=== PATIENT | female | born 1995 | race Caucasian/White ===

== ENCOUNTER 2017-06-18 21:51 | Inpatient (IN) | payer OTHER ==
[~2017-06-18] VITALS: Ht 157.5 cm; Wt 101.4 kg
[~2017-06-18 21:51] MED LIST: (None)20 M1 PO; BIRTH CONTROL PILL; CEPH500 PO; CIPR500 PO; CYCL10 PO; Crutch1 EACH MISC; HYDACE5 PO; IBUP600 PO; MEDR150I IM; NEXPLANON68 MG; Naprosyn500 MG PO; Nix Lice Treatm59 ML TOP; Norco 5-325 Ta1 EACH PO; ONDA4ODT MM; ONDA8ODT MM; OXYACE5T PO; PERM5TC TOP; Permethrin60 GM TOP; Verotin-Gr Cap1 EACH PO
[2017-06-19] MEDS ORDERED: Verotin-Gr Cap1 EACH PO (01:33)
[2017-06-19 01:45] LABS: BASOPHILS ABSOLUTE AUTO 0.01 K/mm3 (0.00-0.23); BASOPHILS PERCENT AUTO 0 % (0-2); EOSINOPHILS ABSOLUTE AUTO 0.03 K/mm3 (0.00-0.68); EOSINOPHILS PERCENT AUTO 0 % (0-6); Hematocrit 35.5 % (33.0-51.0); Hemoglobin 11.5 g/dL (11.5-16.0); IMMATURE GRAN ABSOLUTE AUTO 0.04 K/mm3 (0.00-0.10); IMMATURE GRAN PERCENT AUTO 0 % (0-1); LYMPHOCYTES PERCENT AUTO 12 % (21-46); MONOCYTES ABSOLUTE AUTO 0.48 K/mm3 (0.16-1.47); MONOCYTES PERCENT AUTO 4 % (4-13); Mean Corpuscular HGB 24.5 pg (26.0-34.0); Mean Corpuscular HGB Conc 32.4 g/dL (31.5-36.5); Mean Corpuscular Volume 76 fL (80-100); Mean Platelet Volume 9.8 fL (9.1-12.4); NEUTROPHILS ABSOLUTE AUTO 9.49 K/mm3 (1.96-9.15); NEUTROPHILS PERCENT AUTO 84 % (41-73); Platelet Count 253 K/mm3 (150-400); RDW Coefficient Variation 14.7 % (11.7-14.2); RDW Standard Deviation 40.9 fL (35.1-46.3); White Blood Cell Count 11.35 K/mm3 (4.00-11.30)
[2017-06-20 06:19] LABS: Hematocrit 30.7 % (33.0-51.0); Hemoglobin 9.8 g/dL (11.5-16.0); Mean Corpuscular HGB 24.4 pg (26.0-34.0); Mean Corpuscular HGB Conc 31.9 g/dL (31.5-36.5); Mean Corpuscular Volume 77 fL (80-100); Mean Platelet Volume 9.5 fL (9.1-12.4); Platelet Count 207 K/mm3 (150-400); RDW Coefficient Variation 14.9 % (11.7-14.2); RDW Standard Deviation 42.2 fL (35.1-46.3); Red Blood Cell Count 4.01 M/mm3 (3.80-5.20); White Blood Cell Count 12.05 K/mm3 (4.00-11.30)
[2017-06-20] MEDS ORDERED: IBUP800 PO (09:39)
== END 2017-06-20 18:20 | disposition home or self-care (01) | DRG 775 ==
LOC: BC 21:51 → OBS 06-19 01:18 → BC 06-19 01:19
PROVIDERS: Registered Nurse Community Health
PROC: 10E0XZZ Delivery of Products of Conception, External Approach (ICD-10-PCS; principal; 2017-06-19)
PROC: 0HQ9XZZ Repair Perineum Skin, External Approach (ICD-10-PCS; 2017-06-19)
PROC: 10907ZC Drainage of Amniotic Fluid, Therapeutic from Products of Conception, Via Natural or Artificial Opening (ICD-10-PCS; 2017-06-19)
DX: O99.214 Obesity complicating childbirth (principal); Z68.41 Body mass index [BMI] 40.0-44.9, adult; E66.9 Obesity, unspecified; O70.0 First degree perineal laceration during delivery; Z37.0 Single live birth; Z3A.40 40 weeks gestation of pregnancy; Z88.0 Allergy status to penicillin
CPT/HCPCS: 36415; 51702; 59025; 81003; 85025; 85027; 99214; J1885; J2590; J3010; J7120

== ENCOUNTER → 2019-03-31 | Outpatient (CLI) | payer OTHER ==
[~2019-03-31] MED LIST changes: +IBUP800 PO
[2019-04-02 19:05] LABS: CHLAMYDIA TRACHOMATIS, NAA Negative (Negative); NEISSERIA GONORRHOEAE, NAA Negative (Negative)
== END ==
LOC: LAB SHORT 15:19 → LAB UCHC 15:19
PROVIDERS: Registered Nurse Community Health
DX: O26.91 Pregnancy related conditions, unspecified, first trimester (principal)
CPT/HCPCS: 87491; 87591

== ENCOUNTER 2019-09-27 04:14 | Observation (INO) | payer OTHER ==
[~2019-09-27 04:14] MED LIST changes: +SERT100 PO
[2019-09-27 04:42] LABS: Source, Urine Clean Catch
[2019-09-27 04:47] LABS: Appearance, Urine Cloudy (Clear); Bilirubin, Urine Neg (Neg); Blood, Urine 4+ (Neg); Color, Urine Yellow (P-Yellow); Glucose Qualitative, Urine Neg (Neg); Ketones, Urine 4+ (Neg); Leukocyte Esterase, Urine 3+ (Neg); Nitrite, Urine Neg (Neg); Protein, Urine 2+ (Neg); Urobilinogen, Urine NORM (Normal)
[2019-09-27 04:52] LABS: Trichomonas Few /hpf; White Blood Cells, Urine TNTC /hpf (0-5)
[2019-09-27 04:53] LABS: Bacteria Many /hpf; Mucus Light (0-Heavy); Red Blood Cells, Urine 25-50 /hpf (0-2); Squamous Epithelial Cells Mod /hpf (Few)
[2019-09-27 06:54] LABS: BASOPHILS ABSOLUTE AUTO 0.03 K/mm3 (0.00-0.23); BASOPHILS PERCENT AUTO 0 % (0-2); EOSINOPHILS ABSOLUTE AUTO 0.01 K/mm3 (0.00-0.68); EOSINOPHILS PERCENT AUTO 0 % (0-6); Hematocrit 32.4 % (33.0-51.0); Hemoglobin 10.4 g/dL (11.5-16.0); IMMATURE GRAN ABSOLUTE AUTO 0.08 K/mm3 (0.00-0.10); IMMATURE GRAN PERCENT AUTO 1 % (0-1); LYMPHOCYTES ABSOLUTE AUTO 0.89 K/mm3 (0.84-5.20); LYMPHOCYTES PERCENT AUTO 8 % (21-46); MONOCYTES ABSOLUTE AUTO 0.52 K/mm3 (0.16-1.47); MONOCYTES PERCENT AUTO 5 % (4-13); Mean Corpuscular HGB 27.1 pg (26.0-34.0); Mean Corpuscular HGB Conc 32.1 g/dL (31.5-36.5); Mean Corpuscular Volume 84 fL (80-100); Mean Platelet Volume 10.1 fL (9.1-12.4); NEUTROPHILS ABSOLUTE AUTO 10.15 K/mm3 (1.96-9.15); NEUTROPHILS PERCENT AUTO 87 % (41-73); Platelet Count 176 K/mm3 (150-400); RDW Coefficient Variation 13.8 % (11.7-14.2); RDW Standard Deviation 42.4 fL (35.1-46.3); Red Blood Cell Count 3.84 M/mm3 (3.80-5.20); White Blood Cell Count 11.68 K/mm3 (4.00-11.30)
[2019-09-27 07:20] LABS: Alanine Aminotransfer (ALT/SGP 12 U/L (12-78); Albumin, Blood 2.2 g/dL (3.4-5.0); Albumin/Globulin Ratio 0.6 (0.8-1.8); Alk Phos 94 U/L (50-136); Anion Gap 8 mmol/L (6-16); Aspartate Aminotrans (AST/SGOT 12 U/L (12-37); Bilirubin, Total 0.2 mg/dL (0.1-1.0); Blood Urea Nitrogen 6 mg/dL (8-24); Bun/Creatinine Ratio 8.3 (12.0-20.0); CO2, Blood 21 mmol/L (21-32); Chloride, Blood 110 mmol/L (98-108); Creatinine, Blood 0.73 mg/dL (0.40-1.00); Globulin, Blood 3.7 g/dL (2.2-4.0); Glomerular Filtration Rate >60 (60-); Glucose, Blood 105 mg/dL (70-99); Sodium, Blood 139 mmol/L (136-145); Total Protein, Blood 5.9 g/dL (6.4-8.2)
--- NOTE | 2019-09-27 10:09 | NUR ---
0715 ASSUMED CARE ASSUMED CARE OF PATIENT PATIENT REPORTS PAIN IS NOW INCREASING, MEDICATED WITH FENTANYL AND PAIN REDUCED TO 0. K. CHONGT IN TO SEE PATIENT, WILL WAIT FOR RENAL U/S RESULT AND CONTINUE TO HYDRATE VIA IVF
== END 2019-09-27 12:15 | disposition home or self-care (01) ==
LOC: BC 04:14 → OBS 04:14 → BC 09:21
PROVIDERS: Advanced Practice Midwife; ADMIT Registered Nurse Community Health
DX: O60.00 Preterm labor without delivery, unspecified trimester (principal); Z3A.00 Weeks of gestation of pregnancy not specified; Z88.0 Allergy status to penicillin
CPT/HCPCS: 36415; 59025; 76770; 80053; 81001; 81003; 85025; 87086; 96361; 96365; 96366; 96375; 96376; G0378; J0696; J2405; J3010; J7030

== ENCOUNTER → 2019-10-06 | Outpatient (CLI) | payer OTHER | LOC: LAB SHORT 19:05 → LAB 19:05 | DX: Z34.83 Encounter for supervision of other normal pregnancy, third trimester (principal) | CPT/HCPCS: 87081; 87653 ==

== ENCOUNTER 2019-11-02 04:43 | Inpatient (IN) | payer OTHER ==
[~2019-11-02] VITALS: Ht 157.5 cm; Wt 108.2 kg
[2019-11-02 05:55] LABS: BASOPHILS ABSOLUTE AUTO 0.02 K/mm3 (0.00-0.23); BASOPHILS PERCENT AUTO 0 % (0-2); EOSINOPHILS ABSOLUTE AUTO 0.07 K/mm3 (0.00-0.68); EOSINOPHILS PERCENT AUTO 1 % (0-6); Hematocrit 33.1 % (33.0-51.0); Hemoglobin 10.8 g/dL (11.5-16.0); IMMATURE GRAN ABSOLUTE AUTO 0.09 K/mm3 (0.00-0.10); IMMATURE GRAN PERCENT AUTO 1 % (0-1); LYMPHOCYTES ABSOLUTE AUTO 1.73 K/mm3 (0.84-5.20); LYMPHOCYTES PERCENT AUTO 18 % (21-46); MONOCYTES ABSOLUTE AUTO 0.57 K/mm3 (0.16-1.47); MONOCYTES PERCENT AUTO 6 % (4-13); Mean Corpuscular HGB 25.7 pg (26.0-34.0); Mean Corpuscular HGB Conc 32.6 g/dL (31.5-36.5); Mean Corpuscular Volume 79 fL (80-100); Mean Platelet Volume 9.9 fL (9.1-12.4); NEUTROPHILS ABSOLUTE AUTO 7.06 K/mm3 (1.96-9.15); NEUTROPHILS PERCENT AUTO 74 % (41-73); Platelet Count 202 K/mm3 (150-400); RDW Coefficient Variation 14.4 % (11.7-14.2); RDW Standard Deviation 40.4 fL (35.1-46.3); Red Blood Cell Count 4.21 M/mm3 (3.80-5.20); White Blood Cell Count 9.54 K/mm3 (4.00-11.30)
[2019-11-03 05:30] LABS: BASOPHILS ABSOLUTE AUTO 0.02 K/mm3 (0.00-0.23); BASOPHILS PERCENT AUTO 0 % (0-2); EOSINOPHILS ABSOLUTE AUTO 0.06 K/mm3 (0.00-0.68); EOSINOPHILS PERCENT AUTO 1 % (0-6); Hematocrit 28.6 % (33.0-51.0); Hemoglobin 9.3 g/dL (11.5-16.0); IMMATURE GRAN ABSOLUTE AUTO 0.09 K/mm3 (0.00-0.10); IMMATURE GRAN PERCENT AUTO 1 % (0-1); LYMPHOCYTES ABSOLUTE AUTO 1.59 K/mm3 (0.84-5.20); LYMPHOCYTES PERCENT AUTO 13 % (21-46); MONOCYTES ABSOLUTE AUTO 0.64 K/mm3 (0.16-1.47); MONOCYTES PERCENT AUTO 5 % (4-13); Mean Corpuscular HGB 25.8 pg (26.0-34.0); Mean Corpuscular HGB Conc 32.5 g/dL (31.5-36.5); Mean Corpuscular Volume 79 fL (80-100); Mean Platelet Volume 9.9 fL (9.1-12.4); NEUTROPHILS ABSOLUTE AUTO 9.75 K/mm3 (1.96-9.15); NEUTROPHILS PERCENT AUTO 80 % (41-73); Platelet Count 174 K/mm3 (150-400); RDW Coefficient Variation 14.3 % (11.7-14.2); RDW Standard Deviation 41.4 fL (35.1-46.3); White Blood Cell Count 12.15 K/mm3 (4.00-11.30)
[2019-11-03] MEDS ORDERED: PRENATAL MULTI1 EAC3 PO (11:38)
[2019-11-03] MEDS ORDERED: IBUP800 PO (11:39)
--- NOTE | 2019-11-03 12:52 | NUR ---
SCRIPT FOR IBUPROFEN 800 MG 1 PO Q 8 HOURS PRN PAIN #30 WITH 1 REFILL. CALLED TO [facility]
--- NOTE | 2019-11-03 16:18 | NUR ---
1600: CHARTING OF SN REVIEWED. PT D/C HOME WITH BABY
== END 2019-11-03 16:00 | disposition home or self-care (01) | DRG 807 ==
LOC: OBS 04:43 → BC 04:45 → OBS 04:57 → BC 04:58
PROVIDERS: ADMIT Registered Nurse Community Health
PROC: 10E0XZZ Delivery of Products of Conception, External Approach (ICD-10-PCS; principal; 2019-11-02)
PROC: 10907ZC Drainage of Amniotic Fluid, Therapeutic from Products of Conception, Via Natural or Artificial Opening (ICD-10-PCS; 2019-11-02)
PROC: 3E033VJ Introduction of Other Hormone into Peripheral Vein, Percutaneous Approach (ICD-10-PCS; 2019-11-02)
PROC: 6A550ZT Pheresis of Cord Blood Stem Cells, Single (ICD-10-PCS; 2019-11-02)
DX: O99.344 Other mental disorders complicating childbirth (principal); Z37.0 Single live birth; F41.9 Anxiety disorder, unspecified; O69.81X0 Labor and delivery complicated by cord around neck, without compression, not applicable or unspecified; Z3A.40 40 weeks gestation of pregnancy
CPT/HCPCS: 36415; 51702; 85025; 86850; 86900; 86901; J2001; J2210; J2590; J3010; J7120

== ENCOUNTER 2020-02-10 06:28 | Day surgery (SDC) | payer OTHER ==
[~2020-02-10] VITALS: Ht 157.5 cm; Wt 106.3 kg
[~2020-02-10 06:28] MED LIST changes: +PRENATAL MULTI1 EAC3 PO
[2020-02-10] MEDS ORDERED: SERT100 (07:21)
--- NOTE | 2020-02-10 07:37 | NUR ---
02/10/20 0737 Afia Parker COVID DONE IN PREOP. AWAITING RESULTS. ANESTHESIA AND DR AWARE. CALL LIGHT WITHIN REACH
--- NOTE | 2020-02-10 10:01 | NUR ---
02/10/20 1001 DOROTA KUMARI RECEIVED REPORT FROM ZENA ELLSWORTH. PATIENT HAS BEEN MEDICATED WITH IV PAIN MEDICATION - FENTANYL - TOTAL OF 50 MCG PRIOR TO TRANSFER OF CARE. PATIENT REPORTS PAIN AT 3/10 AND IS TOLERABLE. IS VISIBLY RELAXED AND ABLE TO NOD OFF. REMAINS CALM MOVES ABOUT EASILY. PATIENT DENIES WANTING ANY THING OTHER THAN WATER AT THIS TIME. VSS. CALLED AND IS ON WAY. WILL CONTINUE TO MONITOR
== END 2020-02-10 10:20 | disposition home or self-care (01) ==
LOC: ORSCSDS 06:28
PROVIDERS: Obstetrics & Gynecology
PROC: 0UT74ZZ Resection of Bilateral Fallopian Tubes, Percutaneous Endoscopic Approach (ICD-10-PCS; principal; 2020-02-10 07:30)
DX: Z30.2 Encounter for sterilization (principal); J45.909 Unspecified asthma, uncomplicated; E66.01 Morbid (severe) obesity due to excess calories; Z68.41 Body mass index [BMI] 40.0-44.9, adult; Z79.899 Other long term (current) drug therapy
CPT/HCPCS: 88302; J0171; J1100; J1580; J1885; J2250; J2405; J2704; J2710; J3010; J7120; U0002

== ENCOUNTER 2022-07-15 15:43 | Emergency (ER) | payer OTHER ==
[~2022-07-15] VITALS: Ht 157.5 cm; Wt 90.7 kg
[~2022-07-15 15:43] MED LIST changes: +SERT100
== END 2022-07-15 16:59 | disposition home or self-care (01) ==
LOC: ER 15:43
DX: S61.012A Laceration without foreign body of left thumb without damage to nail, initial encounter (principal); R55 Syncope and collapse; W19.XXXA Unspecified fall, initial encounter; Z87.891 Personal history of nicotine dependence
CPT/HCPCS: 93005; 93010

== ENCOUNTER 2022-07-17 12:52 | Emergency (ER) | payer OTHER ==
[~2022-07-17] VITALS: Ht 157.5 cm; Wt 90.7 kg
== END 2022-07-17 15:40 | disposition home or self-care (01) ==
LOC: ER 12:52
DX: S06.0XAA Concussion with loss of consciousness status unknown, initial encounter (principal); J45.909 Unspecified asthma, uncomplicated; G47.30 Sleep apnea, unspecified; Z88.0 Allergy status to penicillin; Z91.018 Allergy to other foods; Z79.899 Other long term (current) drug therapy; Z87.891 Personal history of nicotine dependence; W18.30XA Fall on same level, unspecified, initial encounter; Y99.0 Civilian activity done for income or pay
CPT/HCPCS: 70450; 99284-25

== ENCOUNTER 2022-07-20 17:10 | Emergency (ER) | payer OTHER ==
[~2022-07-20] VITALS: Ht 157.5 cm; Wt 90.7 kg
[2022-07-20] MEDS ORDERED: ONDA4 PO (18:53)
== END 2022-07-20 18:55 | disposition home or self-care (01) ==
LOC: ER 17:10
DX: S06.0X0A Concussion without loss of consciousness, initial encounter (principal); W22.8XXA Striking against or struck by other objects, initial encounter; J45.909 Unspecified asthma, uncomplicated; Z87.891 Personal history of nicotine dependence; Z91.018 Allergy to other foods; Z88.0 Allergy status to penicillin
CPT/HCPCS: A9270

== ENCOUNTER 2024-02-15 05:59 | Emergency (ER) | payer OTHER ==
[~2024-02-15] VITALS: Ht 157.5 cm; Wt 108.9 kg
[~2024-02-15 05:59] MED LIST changes: +ONDA4 PO
[2024-02-15 06:12] VITALS: BP 126/88
[2024-02-15 12:44] LABS: U Amphetamine Screen Not Detected; U Barbituate Screen Not Detected; U Benzodiazapine Screen Not Detected; U Buprenorphine Screen Not Detected; U Cannabinoids Screen Not Detected; U Cocaine Screen Not Detected; U Methadone Screen Not Detected; U Methamphetamine Screen Not Detected; U Opiates Screen Not Detected; U Oxycodone Screen Not Detected; U Phencyclidine Screen Not Detected
[2024-02-15 12:51] LABS: Albumin, Blood 3.9 g/dL (3.4-5.0); Albumin/Globulin Ratio 1.1 (0.8-1.8); Bilirubin, Total 0.6 mg/dL (0.1-1.0); Bun/Creatinine Ratio 11.7 (12.0-20.0); Calcium, Blood 9.2 mg/dL (8.5-10.1); Creatinine, Blood 0.85 mg/dL (0.40-1.00); Globulin, Blood 3.7 g/dL (2.2-4.0); Potassium, Blood 4.3 mmol/L (3.5-5.5); Total Protein, Blood 7.6 g/dL (6.4-8.2)
[2024-02-15 13:21] LABS: BASOPHILS ABSOLUTE AUTO 0.04 K/mm3 (0.00-0.23); BASOPHILS PERCENT AUTO 0 % (0-2); EOSINOPHILS ABSOLUTE AUTO 0.12 K/mm3 (0.00-0.68); EOSINOPHILS PERCENT AUTO 1 % (0-6); Hematocrit 43.2 % (33.0-51.0); Hemoglobin 15.2 g/dL (11.5-16.0); IMMATURE GRAN ABSOLUTE AUTO 0.04 K/mm3 (0.00-0.10); IMMATURE GRAN PERCENT AUTO 0 % (0-1); LYMPHOCYTES ABSOLUTE AUTO 1.53 K/mm3 (0.84-5.20); LYMPHOCYTES PERCENT AUTO 17 % (21-46); MONOCYTES ABSOLUTE AUTO 0.29 K/mm3 (0.16-1.47); MONOCYTES PERCENT AUTO 3 % (4-13); Mean Corpuscular HGB Conc 35.2 g/dL (31.5-36.5); Mean Corpuscular Volume 85 fL (80-100); Mean Platelet Volume 9.6 fL (9.1-12.4); NEUTROPHILS ABSOLUTE AUTO 7.01 K/mm3 (1.96-9.15); NEUTROPHILS PERCENT AUTO 78 % (41-73); Platelet Count 263 K/mm3 (150-400); RDW Coefficient Variation 13.1 % (11.7-14.2); RDW Standard Deviation 40.6 fL (35.1-46.3); Red Blood Cell Count 5.06 M/mm3 (3.80-5.20); White Blood Cell Count 9.03 K/mm3 (4.00-11.30)
[2024-02-15 15:02] LABS: Source, Urine Clean Catch
[2024-02-15 15:22] LABS: Appearance, Urine Turbid (Clear); Bilirubin, Urine Neg (Neg); Blood, Urine 1+ (Neg); Color, Urine Yellow (P-Yellow); Glucose Qualitative, Urine Neg (Neg); Ketones, Urine 1+ (Neg); Leukocyte Esterase, Urine 1+ (Neg); Nitrite, Urine Pos (Neg); Protein, Urine 2+ (Neg); Urobilinogen, Urine NORM (Normal)
[2024-02-15 15:28] LABS: Amorphous Heavy (0-Heavy); Bacteria Many /hpf; Squamous Epithelial Cells Few /hpf (Few)
[2024-02-15 15:29] LABS: Mucus Light (0-Heavy)
== END 2024-02-15 16:23 | disposition other institution (70) ==
LOC: ER 05:59
PROVIDERS: Student in an Organized Health Care Education/Training Program
DX: T14.91XA Suicide attempt, initial encounter (principal); J45.909 Unspecified asthma, uncomplicated; Z87.891 Personal history of nicotine dependence
CPT/HCPCS: 80053; 81001; 81025; 84443; 85025

== ENCOUNTER 2024-02-15 09:50 | Inpatient (IN) | payer OTHER ==
[~2024-02-15] VITALS: Wt 109.0 kg
[2024-02-15] MEDS ORDERED: Melatonin 3 MG Tab PO PRN (17:25)
[2024-02-15] MEDS ORDERED: OLANZapine 10 MG Vial IM PRN ×2 (17:25)
[2024-02-15] MEDS ORDERED: Haloperidol Lactate Inj. 5 MG/ML Injection IM PRN (17:25)
[2024-02-15] MEDS ORDERED: QUEtiapine Fumarate 25 MG Tab PO PRN (17:25)
[2024-02-15] MEDS ORDERED: DiphenhydrAMINE HCl 50 MG Cap PO PRN (17:25)
[2024-02-15] MEDS ORDERED: TraZODone HCl 50 MG Tab PO PRN (17:25)
[2024-02-15] MEDS ORDERED: Haloperidol 5 MG Tab PO PRN (17:25)
[2024-02-15] MEDS ORDERED: HydrOXYzine Pamoate 50 MG Cap PO PRN (17:30)
[2024-02-15] MEDS ORDERED: DiphenhydrAMINE HCl 50 MG/ML 1ML Vial IM PRN (17:30)
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
[2024-02-15 18:43] VITALS: BP 127/80
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
[2024-02-16] MEDS ORDERED: Trimethoprim/Sulfamethoxazole DS Tab PO SCH (15:00)
[2024-02-16] MEDS ORDERED: Lactobacil 2-S.Thermo-Bifido 1 1 Cap PO SCH (16:00)
--- NOTE | 2024-02-16 17:18 | NUR ---
SHIFT SUMMARY: PT SPOKE AT LENGTH WITH THE MACHINING ASSOCIATE AND WAS MUCH CALMER AFTER. SHE ENAGAGED IN DEPT MILIEU, MEALS AND WATCHING TV. SHE WAS COMPLIANT WITH MEDICATIONS FOR UTI AFTER MEETING WITH DR. SOSA.
--- NOTE | 2024-02-17 05:15 | NUR ---
ADY IN DAYROOM AT START OF SHIFT IN THE PRESENCE OF STAFF WATCHING TELEVISION. PT A&O X 4. REPORTS MOOD IT HAS BEEN A DAY. DENIED SI/HI/AVTH AND PAIN. APPEARS WELL - GROOMED, INSIGHTFUL AND GOAL ORIENTED. CALM AND COOPERATIVE WITH ALL CARE THIS SHIFT. REPORTED FEELING ANXIOUS, AND STATED TALKING TO THE ROAD BOSS TODAY WAS BENEFICIAL AND IS LOOKING FORWARD TO SEEING A THERAPIST UPON DISCHARGE. PT DID REPORT FEELING HIGHLY FRUSTRATED AND IRRITABLE EARLY IN THE SHIFT DUE TO THE MEETING WITH THE MD. PT STATED I WILL TRY TO KEEP MY COOL MOVING FORWARD BUT I JUST NEED THEM TO LISTEN TO ME. PT REQUESTED PRN VISTARIL FOR ANXIETY AND TO ASSIST WITH SLEEP. PRN MEDICATION GIVEN PER EMAR. PT SLEPT WELL THIS SHIFT WITHOUT INCIDENT AND IS STILL CURRENTLY ASLEEP, CHEST RISING IN NAD. SUPPORT AND ENCOURAGEMENT PROVIDED. SAFETY MEASURES MAINTAINED VIA Q15 MINUTE CHECKS.
[2024-02-17] MEDS ORDERED: Sertraline HCl 100 MG Tab PO SCH (09:00)
[2024-02-17 12:01] VITALS: BP 112/75
--- NOTE | 2024-02-17 17:30 | NUR ---
Pt LAKISHA Established for [facility] Pt was educated by staff weapons officer on where she wanted to establish care. I had pt sign an LAKISHA so that I could coordinate appointments for her. She was inactive in their system. I had them send a note to the Transition of Care team to reach out to me tomorrow to set up all appointments. Pt would like to reestablish with previous therapist that she saw at [facility].
--- NOTE | 2024-02-17 18:10 | NUR ---
SHIFT SUMMARY PT AA&OX4. PLEASANT AND COOPERATIVE WITH CARE. SPEECH AND EYE CONTACT APPROPRIATE. COMPLIANT WITH MEDICATIONS. PT WAS CONCERNED WITH ZOLOFT DOSE BEING TO HIGH SHE FEELS HAS MADE HER "WIRED" IN THE PAST. DISCUSSED WITH PT AND DR. CASTRO AND PT AGREED TO CONTINUE CURRENT DOSE. SHE DENIES ANY SIDE FFECTS TODAY. PT HAS BEEN UP TO [facility] AND PARTICIPATING IN GROUPS. REPRTS MOOD IS "OKAY" AFFECT HAS BEEN EUTHYMIC. DENIES SI, AVH. SAFETY CONTRACT IN PLACE. PT IS EAGER TO GO HOME. SHE DENIES ANY NEEDS OR CONCERNS AT THIS TIME
--- NOTE | 2024-02-18 04:13 | NUR ---
ADY IN ROOM SITTING ON BED READING AT START OF SHIFT. PT A&O X 4, APPEARS WELL-GROOMED, CHEERFUL. PT REPORTED I HAD A MUCH BETTER DAY TODAY. PT REPORTED SHE IS ATTENDING ALL GROUPS, AND IS WANTING TO GET BETTER SO THAT SHE CAN GO HOME TO HER CHILDREN. PT DENIED SI/HI/AVTH AND PAIN. PT REQUESTED PRN VISTARIL FOR ANXIETY 07/25. MEDICATION GIVEN PER EMAR. DENIED ALL OTHER CONCERNS. THIS SHIFT. SLEPT ALL SHIFT WITHOUT INCIDENT. PT IS STILL CURRENTLY ASLEEP, CHEST RISING IN NAD. SUPPORT AND ENCOURAGEMENT PROVIDED. SAFETY MEASURES MAINTAINED VIA Q15 MINUTE CHECKS.
[2024-02-18 09:51] VITALS: BP 121/96
--- NOTE | 2024-02-18 12:54 | NUR ---
HOANG CONFIRMED FOLLOW UP PCP APPT FOR PT 02/25/24 AT 10:40AM
--- NOTE | 2024-02-18 13:58 | NUR ---
Pt Appointment Follow up RN spoke to pt and appointment they set up does not work with her schedule. Called [facility] and they have sent note back to Transition of Care team to let them know availability and will get back to us shortly on fixing this for pt. Also let them know pt wants to ensure she is set up with therapist on leaving [facility].
--- NOTE | 2024-02-18 15:35 | NUR ---
Pt Discharge Appointment Scheduled Pt appointment rescheduled for 02/26/2024 at 1040am. Case Management requested that D/C Summary be faxed over to them at this number [phone] This should be done once SIMRAN so Dr Mckenzie can review meds and discharge summary. Please put ATTN: Deneen.
--- NOTE | 2024-02-18 16:53 | NUR ---
SHIFT SUMMARY A/OX4. STATED WAS A BIT TIRED TODAY DID NOT SLEEP WELL LAST NIGHT AND TOOK VISTARIL TO HELP SLEEP. WAS AWAKENED BY OTHER PATIENT BY NOISE. WANTS TO GO HOME TO HER BOYS. HER GOAL IS TO MANAGE HER FEELINGS AND DISCONNECT ANGER. PATIENT HAS PCP FOLLOW UP APPOINTMENT ON 02/25/24. DENIES SI AT THIS TIME ALONG WITH BEING SAD, TEARFUL, DEPRESSED, ANXIOUS AT THIS TIME. DISCHARGE PLAN IN THE WORKS WITH THE DC TECHNICAL SYSTEM ANALYST. PLEASANT AND CALM TO WORK WITH. REMAINS ON BACTRIM FOR UTI. WILL CONTINUE TO MONITOR
[2024-02-18 21:42] VITALS: BP 120/81
--- NOTE | 2024-02-19 04:41 | NUR ---
PATIENT WAS AWAKE IN THE GROUP ROOM WATCHING A MOVIE AT THE BEGINNING OF THE SHIFT. SHE WAS PLEASANT AND COOPERATIVE WITH CARES, INCLUDING EVENING MEDICATIONS. SHE WENT TO BED AND WAS NOTED TO BE RESTING QUIETLY WITH EYES CLOSED AND RESPIRATIONS CONFIRMED THROUGHOUT MOST OF APPAREL CUTTER. SHE HAD NO S/SX OF SUICIDAL IDEATION THIS SHIFT.
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
[2024-02-19 09:28] VITALS: BP 118/83
[2024-02-19 20:53] VITALS: BP 122/81
--- NOTE | 2024-02-20 04:33 | NUR ---
Assumed care from prior shift. Patient is A/O x4. able to voice needs and have meaningful conversation. She is socializing with patients and staff appropriately at beginning of shift. she is compliant with: care, assessment and medications. She did request a PRN Trazodone at bedtime. She goes to bed without encourgement. She sleeps through the night without behaviors or issues.
[2024-02-20 08:46] VITALS: BP 124/75
--- NOTE | 2024-02-20 10:36 | NUR ---
A/OX4. PATIENT HAD BREAKFAST, SHOWERED, AND TOOK MEDS. IS IN GROUP PLAYING CARDS. SAID THAT SHE IS"DOING GOOD." WILL CONTINUE TO MONITOR
[2024-02-20 22:48] VITALS: BP 120/83
--- NOTE | 2024-02-21 04:01 | NUR ---
ASSUMED CARE FROM PRIOR SHIFT. PATIENT IS A/OX4. ABLE TO VOICE NEEDS AND HAVE MEANINGFUL CONVERSATION. SHE IS SOCIALIZING APPROPRIATELY WITH OTHER PATIENTS AND STAFF. SHE MAKES GOOD EYE CONTACT AND SEEMS TO BE IN GOOD SPIRITS. SHE DENIES ANY SI, AH AND VH. SHE IS EXCITED ABOUT BEING DISCHARGED. SHE REQUESTED PRN TRAZODONE TO ASSIST WITH SLEEP. SHE GOES TO BED WITHOUT ENCOURAGMENT. NO NOTED BEHAVIORS OR ISSUES. SHE SLEEPS THROUGH THE NIGHT.
[2024-02-21 08:45] VITALS: BP 125/85
--- NOTE | 2024-02-21 09:34 | NUR ---
PATIENT UP AND IN GROUP ROOM WORKING ON A PUZZLE. IS EXCITED TO BE GOING HOME TODAY. DENIES SI. HER MOOD IS BRIGHT AND CHEERY. WILL CONTINUE TO MONITOR
[2024-02-21] MEDS ORDERED: MELA3 PO (14:35)
[2024-02-21] MEDS ORDERED: SERT50 PO (14:37)
[2024-02-21] MEDS ORDERED: VISBIOME 112.51 EACH PO (14:39)
--- NOTE | 2024-02-21 15:58 | NUR ---
PATIENT DISCHARGED AT 1541 TO HOME. MOTHER PICKED HER UP. PT AMBULATED OUT WITH STAFF MEMBER TO MOTHERS CAR. BELONGINGS SENT WITH PATIENT..DISCHARGE INSTRUCTIONS GIVEN. PRESCRIPTION SCANNED TO [facility]. CALLED THEM TO VERIFY THAT THEY RECEIVED IT AND THEY SAID YES. EDUCATION MATERIALS GIVEN TO PT. PT ALERT AND ORIENTED X4.
== END 2024-02-21 15:41 | disposition home or self-care (01) | DRG 885 ==
LOC: BHU 09:50
PROVIDERS: ADMIT Student in an Organized Health Care Education/Training Program
DX: F33.2 Major depressive disorder, recurrent severe without psychotic features (principal); N39.0 Urinary tract infection, site not specified; R45.851 Suicidal ideations; J45.909 Unspecified asthma, uncomplicated; E66.9 Obesity, unspecified; F17.210 Nicotine dependence, cigarettes, uncomplicated; Z88.0 Allergy status to penicillin; Z91.018 Allergy to other foods; Z90.49 Acquired absence of other specified parts of digestive tract; Z98.51 Tubal ligation status
CPT/HCPCS: A9270; J1200; J1630